=== PATIENT | male | born 1960 | race Two or more races ===

== ENCOUNTER 2022-12-24 07:08 | Day surgery (SDC) | payer OTHER | END 2022-12-24 12:35 | disposition home or self-care (01) | LOC: AMB-ENDOS 07:08 → EDBD 13:00 → AMB-ENDOS 13:00 | PROVIDERS: ATTEND Surgery | DX: K63.5 Polyp of colon (principal); K92.1 Melena; Z20.822 Contact with and (suspected) exposure to COVID-19 ==

== ENCOUNTER 2023-04-20 12:45 | Inpatient (IN) | payer OTHER ==
[~2023-04-20] VITALS: Ht 177.8 cm; Wt 80.7 kg
[2023-04-20] MEDS ORDERED: METFORMIN HCL500 M3 PO (14:57)
[2023-04-26] MEDS ORDERED: METRONIDAZOLE/SODIUM CHLORIDE 500 MG/100 ML PIGGYBACK IV ONE ×2 (11:41→15:00)
[2023-04-26] MEDS ORDERED: CEFTRIAXONE SODIUM 2,000 MG VIAL ONE (11:41)
[2023-04-26] MEDS ORDERED: RYBELSUS7 MG (13:07)
[2023-04-26] MEDS ORDERED: ATORVASTATIN CA20 MG (13:07)
[2023-04-26] MEDS ORDERED: PRIMIDONE50 MG (13:07)
[2023-04-26] MEDS ORDERED: BUPROPION HCL150 M1 (13:07)
[2023-04-26] MEDS ORDERED: TRAZODONE HCL150 MG (13:07)
[2023-04-26] MEDS ORDERED: LOSARTAN POTASS25 MG (13:07)
[2023-04-26] MEDS ORDERED: LANTUS SOL100 UNIT/1 (13:07)
[2023-04-26] MEDS ORDERED: TAMSULOSIN HCL0.4 MG (13:08)
[2023-04-26] MEDS ORDERED: VARENICLINE TART1 MG (13:08)
[2023-04-26] MEDS ORDERED: BUPIVACAINE HCL/PF 0.5% 30ML ML ONE (14:05)
[2023-04-26] MEDS ORDERED: LIDOCAINE HCL 1%/Epi 20ML VIAL IJ ONE ×2 (14:05→15:15)
[2023-04-26] MEDS ORDERED: CEFTRIAXONE SODIUM 2,000 MG VIAL IV ONE (15:00)
[2023-04-26] MEDS ORDERED: BUPIVACAINE HCL 30 ML VIAL IJ ONE (15:00)
[2023-04-26] MEDS ORDERED: OxyCODONE HCL 5 MG TABLET (ROXICODONE) PO PRN (15:30)
[2023-04-26] MEDS ORDERED: DEXTROSE 50 % IN WATER 0.5 G/ML DISP.SYRIN IV PRN (15:30)
[2023-04-26] MEDS ORDERED: INSULIN LISPRO 300 UNIT/3 ML UNITS SUBCUTANEO PRN (15:30)
[2023-04-26] MEDS ORDERED: RINGERS SOLUTION,LACTATED 1,000 ML IV SCH (15:30)
[2023-04-26] MEDS ORDERED: ONDANSETRON HCL 2 MG/ML VIAL IV PRN (15:30)
[2023-04-26] MEDS ORDERED: MORPHINE SULFATE 4 MG/ML CARTRIDGE IV PRN (15:30)
[2023-04-26] MEDS ORDERED: SUGAMMADEX SODIUM 200 MG/2 ML VIAL IV ONE ×2 (15:55→16:15)
[2023-04-26] MEDS ORDERED: ONDANSETRON HCL 2 MG/ML VIAL ONE (16:57)
[2023-04-26] MEDS ORDERED: GABAPENTIN 300 MG CAPSULE PO SCH (17:00)
[2023-04-26] MEDS ORDERED: POLYETHYLENE GLYCOL 3350 17 GM BLIST.PACK PO SCH (17:00)
[2023-04-26] MEDS ORDERED: HYOSCYAMINE SULFATE 0.125 MG TAB.SUBL SL SCH (17:00)
[2023-04-26 18:39] LABS: HEMATOCRIT 36.5 % (39.0-48.0); HEMOGLOBIN 12.4 g/dL (13-16.00); MEAN CELL VOLUME 82.9 fL (80.0-100.00); MEAN CORPUSCULAR HEMOGLOBIN 28.1 pg (27.00-32.0); MEAN CORPUSCULAR HGB CONC 33.9 g/dl (32.0-36.0); PLATELET COUNT 582 K/uL (150-450); RED CELL DISTRIBUTION WIDTH 16.1 % (11.5-14.5)
[2023-04-26 18:54] LABS: ALBUMIN 2.9 gm/dL (3.4-5.0); CALCIUM 8.9 mg/dL (8.5-10.1); CREATININE SERUM 1.21 mg/dL (0.70-1.30); GFR 60.57; MAGNESIUM 1.7 mg/dL (1.8-2.4); PHOSPHOROUS 3.9 mg/dL (2.5-4.9); POTASSIUM 4.23 mEq/L (3.5-5.1)
[2023-04-26] MEDS ORDERED: ACETAMINOPHEN 500 MG GEL..CAP PO SCH (20:00)
[2023-04-26] MEDS ORDERED: FAMOTIDINE/PF 20 MG/2 ML VIAL IV PUSH SCH (21:00)
[2023-04-26] MEDS ORDERED: CELECOXIB 200 MG CAPSULE PO SCH (21:00)
[2023-04-27 07:09] LABS: HEMOGLOBIN 12.1 g/dL (13-16.00); MEAN CELL VOLUME 81.7 fL (80.0-100.00); MEAN CORPUSCULAR HEMOGLOBIN 28.3 pg (27.00-32.0); MEAN CORPUSCULAR HGB CONC 34.6 g/dl (32.0-36.0); PLATELET COUNT 398 K/uL (150-450); RED BLOOD COUNT 4.29 M/uL (4.00-6.00); RED CELL DISTRIBUTION WIDTH 16.2 % (11.5-14.5)
[2023-04-27 07:20] LABS: ALBUMIN 3.2 gm/dL (3.4-5.0); CALCIUM 8.9 mg/dL (8.5-10.1); CREATININE SERUM 1.6 mg/dL (0.70-1.30); GFR 43.87; PHOSPHOROUS 3.4 mg/dL (2.5-4.9); POTASSIUM 4.82 mEq/L (3.5-5.1)
[2023-04-27 16:46] LABS: HEMATOCRIT 27.7 % (39.0-48.0); MEAN CELL VOLUME 81.1 fL (80.0-100.00); MEAN CORPUSCULAR HEMOGLOBIN 27.7 pg (27.00-32.0); MEAN CORPUSCULAR HGB CONC 34.2 g/dl (32.0-36.0); PLATELET COUNT 331 K/uL (150-450); RED BLOOD COUNT 3.42 M/uL (4.00-6.00); RED CELL DISTRIBUTION WIDTH 16.4 % (11.5-14.5)
[2023-04-27 16:55] LABS: HEMOGLOBIN 9.5 g/dL (13-16.00)
[2023-04-27] MEDS ORDERED: ENOXAPARIN SODIUM 40 MG/0.4 ML SYRINGE SUBCUTANEO SCH (17:00)
[2023-04-27 17:21] LABS: CALCIUM 8.5 mg/dL (8.5-10.1); CREATININE SERUM 1.51 mg/dL (0.70-1.30); GFR 46.91; POTASSIUM 4.39 mEq/L (3.5-5.1)
[2023-04-27 20:55] LABS: ABG PH 7.435 (7.35-7.45); ABG pCO2 35.8 mmHg (35-45)
[2023-04-27 20:56] LABS: BASE EXCESS -0.2 mmol/l; BICARBONATE 23.5 mmol/l (23-25); SaO2 98.6 %; Tco2 24.6 mmol/l; allen test SATISFACTORY; o2 28 %; puncture site RADIAL LEFT
[2023-04-28 07:13] LABS: HEMOGLOBIN 9.9 g/dL (13-16.00); MEAN CELL VOLUME 80.7 fL (80.0-100.00); MEAN CORPUSCULAR HEMOGLOBIN 28.6 pg (27.00-32.0); MEAN CORPUSCULAR HGB CONC 35.4 g/dl (32.0-36.0); PLATELET COUNT 350 K/uL (150-450); RED BLOOD COUNT 3.47 M/uL (4.00-6.00); RED CELL DISTRIBUTION WIDTH 16.8 % (11.5-14.5)
[2023-04-28] MEDS ORDERED: TAMSULOSIN HCL 0.4 MG CAP PO ONE (07:30)
[2023-04-28 07:49] LABS: ALBUMIN 2.6 gm/dL (3.4-5.0); CALCIUM 8.7 mg/dL (8.5-10.1); CREATININE SERUM 1.19 mg/dL (0.70-1.30); GFR 61.74; PHOSPHOROUS 2.6 mg/dL (2.5-4.9); POTASSIUM 4.4 mEq/L (3.5-5.1)
[2023-04-28] MEDS ORDERED: ENOXAPARIN SODIUM 40 MG/0.4 ML SYRINGE SUBCUTANEO SCH (09:00)
[2023-04-28] MEDS ORDERED: TAMSULOSIN HCL 0.4 MG CAP PO SCH (11:59)
[2023-04-29] MEDS ORDERED: ENOXAPARIN SODIUM 80 MG/0.8 ML SYRINGE SUBCUTANEO SCH ×2 (06:44→21:00)
[2023-04-29 07:51] LABS: HEMATOCRIT 27.7 % (39.0-48.0); HEMOGLOBIN 9.6 g/dL (13-16.00); MEAN CELL VOLUME 81.3 fL (80.0-100.00); MEAN CORPUSCULAR HEMOGLOBIN 28.2 pg (27.00-32.0); MEAN CORPUSCULAR HGB CONC 34.7 g/dl (32.0-36.0); PLATELET COUNT 396 K/uL (150-450); RED BLOOD COUNT 3.41 M/uL (4.00-6.00); RED CELL DISTRIBUTION WIDTH 16.5 % (11.5-14.5)
[2023-04-29] MEDS ORDERED: CEFAZOLIN SODIUM 1,000 MG VIAL IV ONE (08:30)
[2023-04-29 08:40] LABS: ALBUMIN 2.8 gm/dL (3.4-5.0); BILIRUBIN TOTAL 0.74 mg/dL (0.3-1.2); CALCIUM 9.1 mg/dL (8.5-10.1); CREATININE SERUM 1.54 mg/dL (0.70-1.30); GFR 45.85; GLOBULINA 3.1 G/DL (2.4-3.5); POTASSIUM 5.41 mEq/L (3.5-5.1); TOTAL PROTEIN 5.9 gm/dL (6.4-8.2)
[2023-04-29 08:52] LABS: CKMB 213.4 NG/ML (0.5-3.6)
[2023-04-29] MEDS ORDERED: CEFAZOLIN SODIUM 1,000 MG VIAL ONE (09:37)
[2023-04-29] MEDS ORDERED: INSULIN REGULAR, HUMAN 1,000 UNIT/10 ML UNITS ONE (09:39)
[2023-04-29] MEDS ORDERED: OxyCODONE HCL/APAP UD (PERCOCET) PO PRN (10:30)
[2023-04-29] MEDS ORDERED: INSULIN REGULAR, HUMAN 1,000 UNIT/10 ML UNITS SUBCUTANEO ONE (10:30)
[2023-04-29] MEDS ORDERED: INSULIN LISPRO 1,000 UNIT/10 ML UNITS SUBCUTANEO PRN (10:30)
[2023-04-29] MEDS ORDERED: ONDANSETRON HCL 2 MG/ML VIAL IV PRN (10:30)
[2023-04-29] MEDS ORDERED: 0.9 % SODIUM CHLORIDE 1,000 ML IV SCH (10:30)
[2023-04-29] MEDS ORDERED: MORPHINE SULFATE 4 MG/ML VIAL IV PRN (10:30)
[2023-04-29] MEDS ORDERED: DEXTROSE 50 % IN WATER 0.5 G/ML DISP.SYRIN IV PRN (10:30)
[2023-04-29] MEDS ORDERED: INSULIN LISPRO 1,000 UNIT/10 ML UNITS SUBCUTANEO ONE (11:16)
[2023-04-29] MEDS ORDERED: ENALAPRILAT DIHYDRATE 1.25 MG/ML VIAL IV ONE (11:16)
[2023-04-29 12:40] LABS: INR 0.98; PROTHROMBIN TIME 10.3 SECONDS (9.0-11.5)
[2023-04-29] MEDS ORDERED: HYOSCYAMINE SULFATE 0.125 MG TAB.SUBL SL SCH (13:00)
[2023-04-29] MEDS ORDERED: HYOSCYAMINE SULFATE 0.125 MG TAB.SUBL ONE (13:14)
[2023-04-29 13:54] LABS: ALBUMIN 2.7 gm/dL (3.4-5.0); CREATININE SERUM 1.4 mg/dL (0.70-1.30); GFR 51.18; MAGNESIUM 2.3 mg/dL (1.8-2.4); PHOSPHOROUS 2.3 mg/dL (2.5-4.9); POTASSIUM 4.29 mEq/L (3.5-5.1)
[2023-04-29] MEDS ORDERED: GABAPENTIN 300 MG CAPSULE PO SCH (17:00)
[2023-04-29] MEDS ORDERED: POLYETHYLENE GLYCOL 3350 17 GM BLIST.PACK PO SCH (17:00)
[2023-04-29] MEDS ORDERED: FAMOTIDINE/PF 20 MG/2 ML VIAL IV SCH (21:00)
[2023-04-29] MEDS ORDERED: CEFAZOLIN SODIUM 1,000 MG VIAL IV SCH (21:00)
[2023-04-30] MEDS ORDERED: LACTULOSE 20 G/30 ML BLIST.PACK PO SCH (09:00)
== END 2023-04-29 15:38 | disposition designated cancer center or children's hospital (05) | DRG 330 ==
LOC: SURG 04-26 05:39 → O/R 04-26 05:39 → SURH 04-26 12:45 → SURG 04-26 17:15
PROVIDERS: Surgery; ADMIT Surgery; ATTEND Surgery
PROC: 07BB4ZZ Excision of Mesenteric Lymphatic, Percutaneous Endoscopic Approach (ICD-10-PCS; 2023-04-26)
PROC: 0DBU4ZZ Excision of Omentum, Percutaneous Endoscopic Approach (ICD-10-PCS; 2023-04-26)
PROC: 0DTF4ZZ Resection of Right Large Intestine, Percutaneous Endoscopic Approach (ICD-10-PCS; principal; 2023-04-26 14:15)
PROC: 0KNS0ZZ Release Right Lower Leg Muscle, Open Approach (ICD-10-PCS; 2023-04-29)
PROC: 0KNS0ZZ Release Right Lower Leg Muscle, Open Approach (ICD-10-PCS; 2023-04-29)
PROC: 0KNS0ZZ Release Right Lower Leg Muscle, Open Approach (ICD-10-PCS; 2023-04-29)
PROC: 0KNS0ZZ Release Right Lower Leg Muscle, Open Approach (ICD-10-PCS; 2023-04-29)
PROC: B44FZZZ Ultrasonography of Right Lower Extremity Arteries (ICD-10-PCS; 2023-04-29)
PROC: B54BZZZ Ultrasonography of Right Lower Extremity Veins (ICD-10-PCS; 2023-04-29)
DX: D12.3 Benign neoplasm of transverse colon (principal); I82.431 Acute embolism and thrombosis of right popliteal vein; K92.1 Melena; N17.9 Acute kidney failure, unspecified; M79.A21 Nontraumatic compartment syndrome of right lower extremity; I82.441 Acute embolism and thrombosis of right tibial vein; D12.2 Benign neoplasm of ascending colon; R59.0 Localized enlarged lymph nodes; R33.9 Retention of urine, unspecified; I70.221 Atherosclerosis of native arteries of extremities with rest pain, right leg